=== PATIENT | female | born 1965 | race African-American/Black ===

== ENCOUNTER 2019-03-14 08:47 | Day surgery (SDC) | payer MEDICAID ==
[~2019-03-14] VITALS: Ht 170.2 cm; Wt 114.8 kg
[2019-03-14] MEDS ORDERED: LIDOCAINE HCL 1% 20ML VIAL (Pyxis) INJ ONE (09:04)
[2019-03-14] MEDS ORDERED: SODIUM BICARBONATE 4% (2.4MEQ) 5ML VIAL IV ONE (09:04)
[2019-03-14 10:54] LABS: GLUCOSE CSF 51 mg/dL (41-75)
== END 2019-03-14 14:45 | disposition home or self-care (01) ==
LOC: ANGIO 08:47
PROVIDERS: ATTEND Psychiatry & Neurology Neurology
DX: G35 Multiple sclerosis (principal); Z88.5 Allergy status to narcotic agent; Z88.2 Allergy status to sulfonamides; Z88.0 Allergy status to penicillin; Z91.041 Radiographic dye allergy status; Z88.8 Allergy status to other drugs, medicaments and biological substances; Z79.899 Other long term (current) drug therapy
CPT/HCPCS: 62270; 77003; 82040; 82042; 82784; 82945; 83873; 83916; 84157; 89050; J3490